=== PATIENT | male | born 1970 | race African-American/Black ===

== ENCOUNTER 2021-01-22 11:47 | Emergency (ER) | payer MEDICARE ==
[~2021-01-22] VITALS: Ht 180.3 cm; Wt 81.8 kg
[2021-01-22] MEDS ORDERED: BACITRACIN 0.9 GM PACKET OINTMENT TP ONE (12:30)
[2021-01-22] MEDS ORDERED: PERTUSS(ACELL),DIPH,TET VAC/PF 0.5 ML SYRINGE IM. ONE (12:30)
[2021-01-22] MEDS ORDERED: SODIUM CHLORIDE 0.9% 250 ML IRRIG SOLUTION BOTTLE IRRIG ONE (12:30)
[2021-01-22 14:15] VITALS: BP 126/75
== END 2021-01-22 14:39 | disposition home or self-care (01) ==
LOC: EMS 11:53
DX: S82.831A Other fracture of upper and lower end of right fibula, initial encounter for closed fracture (principal); S80.811A Abrasion, right lower leg, initial encounter; V09.9XXA Pedestrian injured in unspecified transport accident, initial encounter; Y93.89 Activity, other specified; Y92.89 Other specified places as the place of occurrence of the external cause; Y99.8 Other external cause status
CPT/HCPCS: 29515; 90471; 90715; 99284